=== PATIENT | male | born 1955 | race Caucasian/White ===

== ENCOUNTER 2019-03-16 05:39 | Day surgery (SDC) | payer MEDICARE, MEDICAID ==
[2019-03-15 13:00] VITALS: BMI 19.3
--- NOTE | 2019-03-16 00:21 | HP ---
REASON FOR CONSULTATION: "I am here for my neck surgery." HISTORY OF PRESENT ILLNESS: Andrzej Cabrera is a 63-year-old gentleman referred by Dr. Jameson to our office in 2019 for evaluation of neck pain, hand numbness, and imbalance. He has a patient who had a previous ACDF at C5-C6 and C6-[address] Castaneda in the [id number] time frame. He made a good recovery from that, but returned to the office with return of symptoms similar to what he had before. He had clumsiness in his hands. He dropped his coffee without knowing that the electric pains run up and down his arms. We repeated the MRI scan and saw a significant stenosis at C3-C4, but a relatively well preserved segment at C4-C5. Because of myelopathy on examination, we offered him surgery and he is here to proceed with that. PAST MEDICAL HISTORY: Arthritis, hyperlipidemia, chronic pain, hypertension, kidney/bladder problems, osteoporosis, history of stroke. PAST SURGICAL HISTORY: Anterior cervical diskectomy with fusion with Dr. Castaneda. MEDICATIONS: 1. Gabapentin. 2. Atorvastatin. 3. Metoclopramide. ALLERGIES: PENICILLIN (HAS TAKEN CEFDINIR IN THE PAST WITHOUT ALLERGY). SOCIAL HISTORY: Mr. Cabrera denies any illicit drug use. He does not use alcoholic beverages or nicotine products. FAMILY HISTORY: Mr. Cabrera's father has . His mother was diagnosed with cancer before her . REVIEW OF SYMPTOMS: Otherwise negative. PHYSICAL EXAMINATION: GENERAL: Mr. Cabrera came to our neurosurgery Clinic under his own power. He was off balance as he walked in. In the examination room, he is awake and alert. He answers questions appropriately. Speech was fluent and was without dysarthria or dysphasia. His cranial nerves were intact. EXTREMITIES: His upper extremities , there is weakness in the extensors and strength in the flexors. The hand intrinsics were slightly weak. Reflexes were brisk and symmetric. There was 2 beats of clonus. IMAGING FINDINGS AND TEST RESULTS: MR imaging showed cord compression at C3-C4 , and previous decompression at C5-C6 and C6-C7. Flexion-extension x-rays did not show instability at C4-C5. IMPRESSION: 1. Cervical spondylotic myelopathy; recurrent. 2. Here for anterior cervical discectomy and fusion. 3. We have offered him an ACDF at C4-C5, and he would like to proceed. INFORMED CONSENT: We discussed indications, risks, benefits, alternatives, expected outcomes from surgery. The risks we discussed included, but were not limited to , bleeding, infection, CSF leak, damage to the carotid artery, damage to the jugular veins, damage to the trachea, damage to the swallowing mechanism, damage to the vocal cords and damage to the spinal cord. Spinal cord injury could result in paralysis, ventilator dependence, or . Cardiopulmonary complications of anesthesia including are possible. Long-term complications could include hardware failure or adjacent segment disease necessitating future surgery. Mr. Cabrera understands all these risks and wants to proceed. Job ID: [id number] MTDD
[2019-03-16] MEDS ORDERED: Thrombin 5000 UNITS/5 ML VIAL ONE (06:13)
[2019-03-16] MEDS ORDERED: Fentanyl 100 MCG/2 ML VIAL ONE ×3 (06:21→10:17)
[2019-03-16] MEDS ORDERED: Lidocaine 2% Jelly 5 ML TUBE ONE (06:21)
[2019-03-16] MEDS ORDERED: Levofloxacin 500 mg/D5W 100 ml Premix Bag ONE (06:43)
[2019-03-16] MEDS ORDERED: Clindamycin/D5W 900 mg/50 ml Premix Bag ONE ×2 (06:43→14:51)
[2019-03-16 07:07] LABS: #Basophils 0.1 thou/uL (0.0-0.2); #Eosinphils 0.4 thou/uL (0.0-0.7); #Lymphocytes 3.2 thou/uL (1.20-3.40); #Monocytes 1.1 thou/uL (0.11-0.59); #Neutrophils 6.9 thou/uL (1.40-6.50); %Basophils 0.6 % (0.0-1.0); %Eosinophils 3.4 % (0.0-10.0); %Lymphocytes 27.5 % (21.0-51.0); %Monocytes 9.7 % (0.0-10.0); %Neutrophils 58.8 % (42.0-75.0); Hemoglobin 14.7 g/dL (14.0-18.0); Mean Corpuscular HGB CONC 32.8 g/dL (32.0-36.0); Mean Corpuscular Hemoglobin 28.9 pg (27.0-31.0); Mean Corpuscular Volume 88.2 fL (78.0-98.0); Mean Platelet Volume 8.3 fL (7.4-10.4); Platelet Count 219 thou/uL (130-400); RBC Distribution Width 12.9 % (11.5-14.5); Red Blood Cell (RBC) Count 5.09 mill/uL (4.70-6.10); White Blood Cell (WBC) Count 11.8 thou/uL (4.8-10.8)
[2019-03-16 07:13] LABS: PTT 31.5 SEC (22.9-36.1); Prothrombin Time 12.9 SEC (12.0-14.7)
[2019-03-16] MEDS ORDERED: Ondansetron PF 4 MG/2 ML Vial IVP PRN (09:44)
[2019-03-16] MEDS ORDERED: Bisacodyl 10 MG SUPP PR PRN (09:44)
[2019-03-16] MEDS ORDERED: Morphine 2 MG/ML SYRINGE SLOW IVP PRN (09:44)
[2019-03-16] MEDS ORDERED: traMADol HCl 50 MG TAB PO PRN ×2 (09:44)
[2019-03-16] MEDS ORDERED: Promethazine 25 MG TAB PO PRN (09:44)
[2019-03-16] MEDS ORDERED: Acetaminophen/Codeine 30-300mg Tablet PO PRN ×2 (09:44)
[2019-03-16] MEDS ORDERED: tiZANidine HCl 4 MG TAB PO PRN (09:44)
[2019-03-16] MEDS ORDERED: Promethazine HCl 12.5 MG SUPP PR PRN (09:44)
[2019-03-16] MEDS ORDERED: Acetaminophen 650 MG Suppository PR PRN (09:44)
[2019-03-16] MEDS ORDERED: Acetaminophen 325 MG TAB PO PRN (09:44)
[2019-03-16] MEDS ORDERED: Promethazine HCl 25 MG/ML VIAL IM PRN (09:44)
[2019-03-16] MEDS ORDERED: diphenhydrAMINE 25 MG CAP PO PRN (09:44)
[2019-03-16] MEDS ORDERED: Morphine 4 MG/ML VIAL SLOW IVP PRN (09:44)
[2019-03-16] MEDS ORDERED: diphenhydrAMINE 50 MG/ML VIAL IVP PRN (09:44)
[2019-03-16] MEDS ORDERED: Sodium Chloride 0.9% 1,000 ML IV SCH (09:45)
[2019-03-16] MEDS ORDERED: Scopolamine 1.5 mg/72 hour Patch TD SCH (09:45)
[2019-03-16] MEDS ORDERED: Tamsulosin HCl 0.4 MG CAP ONE (09:55)
[2019-03-16] MEDS ORDERED: Ketorolac Tromethamine 30 MG/ML VIAL ONE (10:04)
[2019-03-16] MEDS ORDERED: ePHEDrine/0.9% NaCl/PF SYRINGE 50 mg/10 ml ONE (10:04)
[2019-03-16] MEDS ORDERED: PHENYLEPHRINE-NS 100 MCG/ML 10 ML SYRINGE ONE (10:04)
[2019-03-16] MEDS ORDERED: Dexamethasone 20 MG/5 ML VIAL ONE (10:04)
[2019-03-16] MEDS ORDERED: Rocuronium Bromide 10 MG/ML (10ML VIAL) ONE (10:04)
[2019-03-16] MEDS ORDERED: Ondansetron PF 4 MG/2 ML Vial ONE (10:04)
[2019-03-16] MEDS ORDERED: Esmolol 100 MG/10 ML VIAL ONE (10:04)
[2019-03-16] MEDS ORDERED: Glycopyrrolate 0.2 MG/ML 5 ML SYRINGE ONE (10:04)
[2019-03-16] MEDS ORDERED: Lidocaine 1% PF 5 ML VIAL ONE (10:04)
[2019-03-16] MEDS ORDERED: PROPOFOL 200 MG/20 ML VIAL ONE (10:04)
[2019-03-16] MEDS ORDERED: Acetaminophen/Codeine 30-300mg Tablet ONE (11:07)
--- NOTE | 2019-03-16 12:32 | OP ---
DATE OF PROCEDURE: 03/16/2019 INSURANCE LAW SPECIALIST: None. PREOPERATIVE INDICATION: Prevent neurological deterioration. 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 PROCEDURES PERFORMED: Anterior cervical diskectomy, intervertebral arthrodesis, placement of intervertebral biomechanical device and anterior cervical plating, C3-C4, local morselized autograft, morselized allograft, operating microscope. PREOPERATIVE MEDICATION: Clindamycin 900 mg IV, Levaquin 500 mg IV. DRAIN NUMBER: Zero. DRAIN TYPE: None. DESCRIPTION OF PROCEDURE: The patient was brought to the operating room. Keeping the neck in normal anatomic alignment, general endotracheal anesthesia was induced. The patient was carefully positioned on the operating table with his head supported by a donut-shaped headrest. A lateral fluoro radiograph was used to plan our incision. The right side of the neck was sterilely prepped and draped. We opened with a 10-blade knife and we controlled bleeding with bipolar cautery. We dissected sharply to the platysma. We cut this muscle in line with our incision. We continued our dissection medial to the sternocleidomastoid and lateral to the trachea and esophagus. We arrived at the prevertebral space. We placed a marker at C4-C5 and took a lateral fluoro radiograph to confirm the level upon which we were operating. We then elevated the longus colli muscles off the anterior surface of C3 and C4. We placed self-retaining retractors beneath them. Distraction pins were placed into both of these vertebrae and we distracted across the C3-4 interspace with the [place] distractor. We incised the interspace with a 15-blade knife and removed disk contents and anterior osteophytes with curettes and rongeurs. The operating microscope was brought into the field. Under microscopic magnification and using microsurgical techniques, we removed the remainder of the intervertebral disk. We accessed the ventral epidural space with a micro curette, and through that opening, we passed [place] to remove the posterior longitudinal ligament and posterior osteophytes across the entire interspace from one neural foramen to the other at C3-C4. With our decompression secured, we turned our attention to arthrodesis. We prepared the endplates for grafting using curettes. We measured the height of the interspace to 8 mm with a bone rasp. An 8 mm intervertebral graft was brought into the field. This PEEK intervertebral graft was loaded with demineralized bone matrix and morselized autograft and advanced into the interspace under radiographic guidance to the appropriate depth. The autograft had been prepared from our osteophytes removed during decompression which were cleaned of soft tissue attachments and added into demineralized bone matrix as our fusion substrate. With the interbody device in place, the operative microscope was taken back out of the field and the distraction pins were removed. A 14 mm anterior cervical plate was brought in. We drilled ship's pilot holes through the plate into the vertebral bodies at C3 and C4 and we affixed the plate using a 14 mm fixed screws in C4 and 14 mm variable screws in C3. We engaged the locking mechanism over each of the 4 screws. We irrigated copiously with bacitracin irrigation. AP and lateral fluoro radiographs were obtained confirming adequate positioning of our instrumentation. We irrigated once again with bacitracin irrigation and then we closed the wound in anatomical layers and applied a sterile dressing. This was a clean case, no contamination. Job ID: [id number]
[2019-03-16] MEDS ORDERED: Gabapentin 400 MG CAP PO SCH (13:00)
[2019-03-16] MEDS ORDERED: Clindamycin/D5W 900 MG in Premix Bag 1 BAG IVPB SCH (14:00)
[2019-03-16] MEDS ORDERED: traMADol HCl 50 MG TAB PO SCH (21:00)
[2019-03-16] MEDS ORDERED: Atorvastatin Calcium 20 MG TAB PO SCH (21:00)
[2019-03-17] MEDS ORDERED: Tamsulosin HCl 0.4 MG CAP PO SCH (06:00)
[2019-03-17] MEDS ORDERED: Lisinopril 20 MG TAB PO SCH (09:00)
[2019-03-17] MEDS ORDERED: Nitroglycerin 0.2mg/Hour PATCH TD SCH (09:00)
== END 2019-03-16 17:00 | disposition home or self-care (01) ==
LOC: SDC 05:39
PROVIDERS: ATTEND Neurological Surgery
PROC: 0RG10A0 Fusion of Cervical Vertebral Joint with Interbody Fusion Device, Anterior Approach, Anterior Column, Open Approach (ICD-10-PCS; principal; 2019-03-16)
PROC: 0RT30ZZ Resection of Cervical Vertebral Disc, Open Approach (ICD-10-PCS; 2019-03-16)
DX: M50.01 Cervical disc disorder with myelopathy, high cervical region (principal); M47.12 Other spondylosis with myelopathy, cervical region; M48.02 Spinal stenosis, cervical region; M19.90 Unspecified osteoarthritis, unspecified site; E78.5 Hyperlipidemia, unspecified; I10 Essential (primary) hypertension; M81.0 Age-related osteoporosis without current pathological fracture; J43.9 Emphysema, unspecified; Z86.73 Personal history of transient ischemic attack (TIA), and cerebral infarction without residual deficits; Z79.899 Other long term (current) drug therapy; Z88.0 Allergy status to penicillin; Z98.1 Arthrodesis status
CPT/HCPCS: 20930; 20936; 22551; 22853; 76000; 85025; 85610; 85730; 93005; C1713; C1776; 93010; J1100; J1885; J1956; J2001; J2405; J2704; J3010; J3490